=== PATIENT | female | born 1940 | race Caucasian/White ===

== ENCOUNTER 2017-01-17 09:35 | Outpatient (RCR) | payer MEDICARE, OTHER ==
[2016-05-03 10:14] VITALS: BP 142/79
[~2017-01-17 09:35] MED LIST: ASPIRIN 32325 MG/TA1 PO; CINNAMON500 MG PO; CLARITIN10 MG PO; CO-Q-10 100 MG-1 SGL PO; COZAAR25 MG PO; CRANBERRY200 MG PO; DUO-KAPS1 CAP PO; FLUOXETINE20 MG PO; LIPITOR 40MG TA40 MG PO; NIASPAN500 MG PO; NORCO 325 MG-51 TAB PO; OYSTER CALCIUM1 TA4 PO; PHARMAC PO; PRILOSEC 20MG20 MG PO; SIMVASTATIN20 M1 PO; VITAMIN D35000 IU PO
== END 2017-02-21 07:42 | disposition home or self-care (01) ==
LOC: PT 09:35
DX: M17.12 Unilateral primary osteoarthritis, left knee (principal)

== ENCOUNTER 2017-02-11 20:22 | Emergency (ER) | payer MEDICARE, OTHER ==
[~2017-02-11] VITALS: Ht 157.5 cm; Wt 80.9 kg
[2017-02-11 22:34] VITALS: BP 159/78
== END 2017-02-11 22:46 | disposition home or self-care (01) ==
LOC: ED 20:22
DX: S90.111A Contusion of right great toe without damage to nail, initial encounter (principal); W20.8XXA Other cause of strike by thrown, projected or falling object, initial encounter
CPT/HCPCS: 13854; L4396

== ENCOUNTER → 2017-06-03 | Outpatient (CLI) | payer MEDICARE, OTHER | LOC: LAB 08:36 | DX: Z00.00 Encounter for general adult medical examination without abnormal findings (principal); E03.4 Atrophy of thyroid (acquired); I10 Essential (primary) hypertension; E78.2 Mixed hyperlipidemia ==

== ENCOUNTER → 2018-01-10 | Outpatient (CLI) | payer MEDICARE, OTHER | LOC: LAB 10:58 | DX: E03.4 Atrophy of thyroid (acquired) (principal) ==

== ENCOUNTER → 2018-01-16 | Outpatient (CLI) | payer MEDICARE, OTHER ==
[2018-01-16 11:22] LABS: ALBUMIN 4.5 g/dL (3.5-5.0); BUN/CREATININE RATIO 14.5 (6.0-26.0); CALCIUM 9.7 mg/dL (8.4-10.2); TOTAL BILIRUBIN 0.5 mg/dL (0.2-1.3); TOTAL PROTEIN 8.1 g/dL (6.3-8.2)
[2018-01-16 12:04] LABS: EOS # 0.1 (0.04-0.40); EOS % 1.8 % (1.0-5.0); HEMATOCRIT 45.4 % (37.0-47.0); HEMOGLOBIN 14.9 g/dL (12.5-16.0); LYMPH# 1.9 (1.50-4.00); MEAN CELL VOLUME 98 fl (78-100); MEAN CORPUSCULAR HEMOGLOBIN 32 pg (27-31); MEAN CORPUSCULAR HGB CONC 33 g/dL (33-37); MEAN PLATELET VOLUME 9.6 fl (7.4-10.4); MONO # 0.7 (0.20-0.80); NEU # 3.3 (1.40-6.50); PLATELET COUNT 293 K/mm3 (130-400); RED BLOOD COUNT 4.64 M/mm3 (4.10-5.30); RED CELL DISTRIBUTION WIDTH 12.7 % (11.5-14.5); WHITE BLOOD COUNT 6.1 K/mm3 (4.8-10.8)
[2018-01-17 00:36] LABS: FOLATE (FOLIC ACID) 15.7 ng/mL (7.0-31.4)
== END ==
LOC: LAB 10:31
PROVIDERS: Nurse Practitioner Family
DX: R73.01 Impaired fasting glucose (principal); R53.81 Other malaise; R41.3 Other amnesia; E03.4 Atrophy of thyroid (acquired); M25.561 Pain in right knee; Z88.2 Allergy status to sulfonamides

== ENCOUNTER → 2018-03-07 | Outpatient (CLI) | payer MEDICARE, OTHER | LOC: LAB 15:19 | DX: E03.4 Atrophy of thyroid (acquired) (principal) ==

== ENCOUNTER → 2018-06-22 | Outpatient (CLI) | payer MEDICARE, OTHER ==
[2018-06-22 09:21] LABS: ALBUMIN 4.1 g/dL (3.5-5.0); CALCIUM 8.8 mg/dL (8.4-10.2); POTASSIUM 4.2 mmol/L (3.6-5.0); TOTAL BILIRUBIN 0.7 mg/dL (0.2-1.3); TOTAL PROTEIN 7.4 g/dL (6.3-8.2)
[2018-06-22 09:33] LABS: BASO # 0.1 (0.02-0.10); EOS # 0.2 (0.04-0.40); EOS % 3.4 % (1.0-5.0); HEMATOCRIT 40.7 % (37.0-47.0); HEMOGLOBIN 13.8 g/dL (12.5-16.0); LYMPH# 1.9 (1.50-4.00); MEAN CELL VOLUME 96 fl (78-100); MEAN CORPUSCULAR HEMOGLOBIN 33 pg (27-31); MEAN CORPUSCULAR HGB CONC 34 g/dL (33-37); MEAN PLATELET VOLUME 9.4 fl (7.4-10.4); MONO # 0.8 (0.20-0.80); NEU # 3.8 (1.40-6.50); PLATELET COUNT 265 K/mm3 (130-400); RED BLOOD COUNT 4.22 M/mm3 (4.10-5.30); RED CELL DISTRIBUTION WIDTH 12.5 % (11.5-14.5); WHITE BLOOD COUNT 6.8 K/mm3 (4.8-10.8)
== END ==
LOC: LAB 08:14
PROVIDERS: Family Medicine
DX: Z00.00 Encounter for general adult medical examination without abnormal findings (principal); R73.01 Impaired fasting glucose; I10 Essential (primary) hypertension; R53.81 Other malaise; R53.83 Other fatigue; R41.3 Other amnesia; E03.4 Atrophy of thyroid (acquired); M25.561 Pain in right knee